=== PATIENT | male | born 1970 | race Caucasian/White ===

== ENCOUNTER → 2021-09-15 | Day surgery (SDC) | payer OTHER ==
[~2021-09-15] VITALS: Ht 182.9 cm; Wt 111.1 kg
[~2021-09-15] MED LIST: ASPIRIN EC81 MG PO; CLARITIN-D 121 EACH PO; FARXIGA5 MG PO; GLUCOPHAGE1000 MG PO; HABITROL7 MG TD; LEVEMIR VI100 UNITS/ SC; LIPITOR20 MG PO; LOPRESSOR25 MG PO; LOVAZA1 GM PO; MOTRIN600 MG PO; OZEMPIC0.25 MG/0. SC; PERCOCET 5-3251 EACH PO; PROTONIX 40MG T40 MG PO; SINGULAIR10 MG PO; ZYRTEC10 M3 PO
== END | disposition home or self-care (01) ==
LOC: FAS 07:32
DX: Z12.11 Encounter for screening for malignant neoplasm of colon (principal); D12.2 Benign neoplasm of ascending colon; I10 Essential (primary) hypertension; E11.9 Type 2 diabetes mellitus without complications; E78.5 Hyperlipidemia, unspecified; K21.9 Gastro-esophageal reflux disease without esophagitis; I25.10 Atherosclerotic heart disease of native coronary artery without angina pectoris; I25.2 Old myocardial infarction; F17.210 Nicotine dependence, cigarettes, uncomplicated; Z95.5 Presence of coronary angioplasty implant and graft; Z88.8 Allergy status to other drugs, medicaments and biological substances; Z79.4 Long term (current) use of insulin; Z79.82 Long term (current) use of aspirin; Z79.899 Other long term (current) drug therapy
CPT/HCPCS: J2704; J7120